=== PATIENT | male | born 1960 | race Caucasian/White ===

== ENCOUNTER 2019-09-10 09:36 | Emergency (ER) | payer OTHER ==
[~2019-09-10] VITALS: Ht 177.8 cm; Wt 68.0 kg
[~2019-09-10 09:36] MED LIST: FLEXERIL PO; NAPROSYN500 MG PO; NOHOMEMEDICATIONS; NORCO 5-325 TA1 EACH PO
[2019-09-10 09:38] VITALS: BP 133/41
[2019-09-10] MEDS ORDERED: TRAMADOL 50 MG50 MG PO (12:22)
== END 2019-09-10 12:57 | disposition home or self-care (01) ==
LOC: ER 09:36
DX: S72.401A Unspecified fracture of lower end of right femur, initial encounter for closed fracture (principal); S83.91XA Sprain of unspecified site of right knee, initial encounter; W18.49XA Other slipping, tripping and stumbling without falling, initial encounter; Y93.01 Activity, walking, marching and hiking; Y92.69 Other specified industrial and construction area as the place of occurrence of the external cause; Y99.9 Unspecified external cause status

== ENCOUNTER 2019-09-16 08:37 | Emergency (ER) | payer OTHER ==
[~2019-09-16] VITALS: Ht 177.8 cm; Wt 68.0 kg
[~2019-09-16 08:37] MED LIST changes: +TRAMADOL 50 MG50 MG PO
[2019-09-16 08:53] VITALS: BP 130/47
[2019-09-16] MEDS ORDERED: OMEPRAZOLE40 MG PO (08:59)
[2019-09-16] MEDS ORDERED: TRAMADOL 50 MG50 MG PO (10:14)
== END 2019-09-16 10:28 | disposition home or self-care (01) ==
LOC: ER 08:37
DX: S83.8X1A Sprain of other specified parts of right knee, initial encounter (principal); W18.39XA Other fall on same level, initial encounter; Y92.89 Other specified places as the place of occurrence of the external cause; Y93.89 Activity, other specified; Y99.8 Other external cause status

== ENCOUNTER 2019-09-22 11:20 | Emergency (ER) | payer OTHER ==
[~2019-09-22] VITALS: Ht 177.8 cm; Wt 65.8 kg
[~2019-09-22 11:20] MED LIST changes: +OMEPRAZOLE40 MG PO
[2019-09-22] MEDS ORDERED: NABUMETONE 750750 M1 PO (14:01)
[2019-09-22 14:18] VITALS: BP 112/64
== END 2019-09-22 14:19 | disposition home or self-care (01) ==
LOC: ER 11:20
DX: S83.8X1A Sprain of other specified parts of right knee, initial encounter (principal); X58.XXXA Exposure to other specified factors, initial encounter; Y92.89 Other specified places as the place of occurrence of the external cause; Y93.89 Activity, other specified; Y99.8 Other external cause status